=== PATIENT | female | born 1990 | race African-American/Black ===

== ENCOUNTER 2019-06-19 16:14 | Emergency (ER) | payer MEDICAID ==
[~2019-06-19] VITALS: Ht 162.6 cm; Wt 59.0 kg
[2019-06-19 16:25] VITALS: Ht 162.6 cm; Wt 59.0 kg
[2019-06-19 17:22] LABS: BASOPHIL % 0.2 % (0-2); PLATELET COUNT 157 x10^3mcL (130-400); RED CELL DISTRIBUTION WIDTH 11.8 % (11.5-14.5)
[2019-06-19 17:52] LABS: microscopic required? YES; urine erythrocyte 1+ (NEGATIVE)
[2019-06-19 19:00] VITALS: BP 104/52
== END 2019-06-19 19:00 | disposition home or self-care (01) ==
LOC: ED 16:14
PROVIDERS: Emergency Medicine
DX: O21.9 Vomiting of pregnancy, unspecified (principal); O20.9 Hemorrhage in early pregnancy, unspecified; R10.9 Unspecified abdominal pain; Z3A.10 10 weeks gestation of pregnancy
CPT/HCPCS: J2405; J7030